=== PATIENT | male | born 1935 | race Caucasian/White ===

== ENCOUNTER → 2016-07-16 | Outpatient (CLI) | payer MEDICARE ==
--- NOTE | 2016-07-16 14:40 | CARDIOVASCULAR REPORT ---
"Cerebrovascular Exam Indications: CVA 436. IMPRESSIONS 1. The bilateral vertebral arteries are patent with normal antegrade flow. 2. Study suggests 20-49% stenosis involving the right internal carotid artery and the left internal carotid artery. Carotid duplex study. Complete study and Doppler flow study including spectral analysis, color and hernandez scale imaging. Location: Vascular laboratory. Patient status: Outpatient. Tables: Arterial flow: + +--------+--------+ |Location |V sys |V ed | + +--------+--------+ |Right CCA - proximal|58.1cm/s|10.9cm/s| + +--------+--------+ |Right CCA - distal |62.4cm/s|13.5cm/s| + +--------+--------+ |Right ECA |106cm/s |--------| + +--------+--------+ |Right ICA - proximal|51.9cm/s|17.7cm/s| + +--------+--------+ |Right ICA - mid |55.8cm/s|19.6cm/s| + +--------+--------+ |Right ICA - distal |52.3cm/s|18.5cm/s| + +--------+--------+ |Right vertebral |35cm/s |--------| + +--------+--------+ |Left CCA - proximal |86.9cm/s|22.6cm/s| + +--------+--------+ |Left CCA - distal |82cm/s |17.7cm/s| + +--------+--------+ |Left ECA |130cm/s |--------| + +--------+--------+ |Left ICA - proximal |79.8cm/s|23.9cm/s| + +--------+--------+ |Left ICA - mid |71.7cm/s|29.5cm/s| + +--------+--------+ |Left ICA - distal |77.9cm/s|28.3cm/s| + +--------+--------+ |Left vertebral |33.7cm/s|--------| + +--------+--------+ Velocity ratios: + + + + + + | |Right, V sys|Right, V ed|Left, V sys|Left, V ed| + + + + + + |Max ICA/dist CCA|0.89 |1.45 |0.97 |1.67 | + + + + + + (Report amended ) Electronically signed by: Rosales Hall [id number]"
--- NOTE | 2016-07-16 16:25 | RADIOLOGY REPORT PS360 ---
PROCEDURE: 2-D M-mode and color Doppler study INDICATIONS FOR THE TEST: Chest pain COPD Heart Murmur Tobacco Smoking Palpitations Fatigue Syncope Edema HypertensionXDiabetes Mellitus Rheumatic Fever SOB COHEN Obesity HyperlipidemiaX Family History HD Additional History CVA PATIENT INFORMATION HEIGHT: 64 WEIGHT:164 GENDER: Male B/P:120/70 2-D/M-MODE INTERPRETATION: 2-D MEASUREMENTS OBSERVED VALUES IN CMS Right Ventricular Dimension (RVDd) 2.6 Interventricular Septum (Thickness)(IVsd) 1.4 Left Ventricular Internal Dimensions(LVIDd) 4.2 Left Ventricular Posterior Wall (Thickness)(LVPWd) 1.2 Aortic Root 3.9 Aortic Cusp Separation 1.2 Left Atrial Dimensions (LAD) 2.3 2D 1. Left atrium is qualitatively mildly enlarged, left ventricle is normal size, there is mild concentric left ventricular hypertrophy present, visually estimated ejection fraction 55% with no obvious regional wall motion abnormality. 2. The right atrium and right ventricle are normal size and contractility. 3. The aortic valve is thickened and calcified with restriction the leaflet mobility. 4. The mitral valve has mitral calcification which extends and both anterior and posterior mitral leaflet. 5. The tricuspid valve is structurally normal. 6. The pulmonic valve is not well visualized. 7. No significant pericardial effusion noted. DOPPLER INTERROGATION: 1. The aortic outflow velocities not increased, this excludes presence of significant aortic stenosis, there is mild aortic insufficiency present. 2. The mitral inflow velocity within normal range, there is no mitral stenosis, there is mild mitral regurgitation, grade 1 diastolic dysfunction seen without tissue Doppler evidence of raised left atrial pressure. 3. There is mild tricuspid regurgitation noted, tricuspid regurgitant jet velocity insufficient for calculation of the right ventricular systolic pressure. CONCLUSION: 1. Mildly enlarged left atrium, normal left ventricular size, mild concentric left ventricular hypertrophy, visually estimated ejection fraction 55% with no obvious regional wall motion abnormality. Grade 1 diastolic dysfunction seen without tissue Doppler evidence of raised left atrial pressure. 2. Thickened and calcified aortic valve without significant aortic stenosis, there is mild aortic insufficiency present. 3. Mild mitral and tricuspid regurgitation, tricuspid regurgitant jet velocity insufficient for calculation of the right ventricular systolic pressure. 4. No significant pericardial effusion noted.
== END ==
LOC: RT 13:27
DX: M79.604 Pain in right leg (principal); M79.605 Pain in left leg; I63.9 Cerebral infarction, unspecified; I10 Essential (primary) hypertension; E78.5 Hyperlipidemia, unspecified; I73.9 Peripheral vascular disease, unspecified; R09.89 Other specified symptoms and signs involving the circulatory and respiratory systems; R07.9 Chest pain, unspecified

== ENCOUNTER → 2016-12-25 | Outpatient (CLI) | payer MEDICARE ==
--- NOTE | 2016-12-25 12:39 | RADIOLOGY REPORT PS360 ---
EXAM: CERVICAL SPINE 4 OR 5 VIEWS HISTORY: NECK PAIN ORDERING PHYSICIAN: Link Phillips MD PATIENT AGE: 81 years COMPARISON: None FINDINGS: Mild multilevel degenerative disc disease is present C2-T1 worse at C5-C6 and C6-C7. There is 3 mm anterolisthesis of C4 on C5. Facet and uncovertebral arthritic changes are present with foraminal narrowing on the right at C3 C4 C4 C5 C5 C6 and C6-C7 and on the left at the 45, C5-6, C6-C7, and C7-T1. No fracture or dislocation. There is mild cervical curvature convex left. No lytic or blastic change. Incidental carotid artery calcifications are present. IMPRESSION: 1. 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 Carotid artery disease
--- NOTE | 2016-12-25 12:56 | RADIOLOGY REPORT PS360 ---
EXAM: LUMBAR SPINE 5 VIEWS HISTORY: Low back pain, left leg pain LEFT LEG PAIN ORDERING PHYSICIAN: Link Phillips MD PATIENT AGE: 81 years COMPARISON: 06/19/2016 FINDINGS: There is mild lumbar scoliosis convex left. Facet arthritic changes are present at L4-L5 and L5-S1 and there are degenerative disc disease at L2-L3, L3-L4, and L5-S1. No fracture or dislocation. No lytic or blastic change. A fusiform abdominal aortic aneurysm is once again noted at the L4 level at 4.8 cm. Left renal calculi also suspected. IMPRESSION: 1. Lumbar spondylosis not significant change with degenerative disc disease and facet arthritic change. 2. No change abdominal aortic aneurysm. 3. Left nephrolithiasis
--- NOTE | 2016-12-25 12:56 | RADIOLOGY REPORT PS360 ---
HIP LT 2-3V W/PELVIS IF PERFOR HISTORY: LEFT LEG PAIN ORDERING PHYSICIAN: Link Phillips MD PATIENT AGE: 81 years COMPARISON: None FINDINGS: No fracture or dislocation is evident. Mild osteoarthritic changes are present involving the left hip with slight decrease in joint space medially and minimal osteophytes along the femoral head inferiorly and acetabulum inferiorly. No lytic or blastic change. Generalized vascular calcification is present. IMPRESSION: Mild osteoarthritis of the left hip
== END ==
LOC: RAD 11:16
DX: M54.2 Cervicalgia (principal)

== ENCOUNTER → 2017-01-14 | Outpatient (CLI) | payer MEDICARE ==
--- NOTE | 2017-01-14 14:35 | RADIOLOGY REPORT PS360 ---
US SCREENING FOR AAA HISTORY: AAA W/O RUPTURE Patient Age: 81 years: Male Ordering Physician: Link Phillips MD TECHNIQUE: Ultrasound abdominal aorta COMPARISON :Plain films lumbar spine from December 25, 2016 FINDINGS Initial images show less than 2 cm [place] diameter of the aorta and uppermost abdomen . Continuing inferiorly there is a fusiform ultrasound heart calculus 5 the RCA is scant coarsening of aneurysm of the lower abdominal aorta is again seen. On ultrasound it measures up to 3.7 cm AP x 3.8 cm. Transverse dimension.. It extends for less than 5 cm length at the inferior abdominal aorta and does not appear to extend or involve the bifurcation. The common iliac arteries appear normal diameter measuring ~7 mm each. No aneurysmal dilatation evident here on submitted images Left kidney.: Incidentally note large cysts which distort the upper pole left kidney cyst. This cyst measuring over 6.4 cm height. Lower pole with a 4.6 x 2.6 cm cyst... The enlarged kidney including the cyst measuring at least 12.6 cm length.. Suggest utilizing CT follow-up within the next 6 months to further evaluate this AAA as well as survey kidneys/renal cysts IMPRESSION: Aneurysm lower abdominal aorta. Ultrasound it measures up to 3.7x3.8 cm diameter. It extends for nearly 5 cm length. It does not appear to involve the bifurcation. Incidental note prominent cyst which distort left kidney.. ( 6.4 cm cyst upper pole left kidney & 4.6 cm cyst lower pole.)
== END ==
LOC: RAD 09:00
DX: I71.4 Abdominal aortic aneurysm, without rupture (principal)
CPT/HCPCS: G0389